=== PATIENT | male | born 1980 | race Caucasian/White ===

== ENCOUNTER 2018-09-09 07:08 | Emergency (ER) | payer SELFPAY ==
[2018-09-09 07:40] VITALS: BP 114/70; PULSE 83; TEMP 98.5; BMI 46.5
[2018-09-09] MEDS ORDERED: KETOROLAC TROMETHAMINE 60 MG/2 ML VIAL IM ONE (07:43)
[2018-09-09] MEDS ORDERED: CYCLOBENZAPRINE HCL 10 MG TABLET (FP) PO ONE (07:44)
[2018-09-09] MEDS ORDERED: CYCLOBENZAPRINE HCL 10 MG TABLET (FP) ONE (07:51)
[2018-09-09] MEDS ORDERED: KETOROLAC TROMETHAMINE 60 MG/2 ML VIAL ONE (07:51)
--- NOTE | 2018-09-09 07:52 | PDOC ---
History of Present Illness - General Chief Complaint: Pain Stated Complaint: LEG PAIN Time Seen by Provider: 09/09/18 07:41 History Source: Patient Exam Limitations: No Limitations - History of Present Illness Initial Comments: 09/09/18 07:46 38 y/o male presents to the ED with c/o rt lower back and hip pain since last night. 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 Pt states following the event he was unable to get up from the floor and by the evening came along patient states he was unable to ambulate without discomfort and stated he took his 's Tylenol with codeine which alleviated his pain for approximate 4 hours but then pain returned. Patient states pain is worsened with ambulation causing his an electric burning sensation down his leg. Patient denies saddle anesthesia, incontinence, or sensory changes distal of injury Occurred: reports: yesterday Severity: reports: moderate Pain Location: reports: back, lower extremity Method of Injury: Yes: other Associated Symptoms (Fall): trouble walking Past History - Travel Traveled outside of the country in the last 30 days: No Close contact w/someone who was outside of country & ill: No - Past Medical History Allergies/Adverse Reactions: Allergies Allergy/AdvReac Type Severity Reaction Status Date / Time No Known Allergies Allergy Verified 09/09/18 07:27 Home Medications: Ambulatory Orders Amoxicillin/Potassium Clav [Augmentin 875-125 Tablet] 1 each PO BID #20 tablet 01/02/17 COPD: No - Immunization History Immunization Up to Date: Yes - Suicide/Smoking/Psychosocial Hx Smoking History: Never smoked Have you smoked in the past 12 months: No If you are a former smoker, when did you quit?: 1 yr 3 mo Information on smoking cessation initiated: No Hx Alcohol Use: No Drug/Substance Use Hx: No Substance Use Type: None Patient Lives Alone: No Lives with/in: spouse/SO Trauma Specific PMHX - Complaint Specific PMHX Back Injury: Yes Review of Systems - Review of Systems Able to Perform ROS?: No Is the patient limited Pal[place]an proficient: No Constitutional: No: Symptoms Reported ABD/GI: No: Symptoms Reported : No: Symptoms Reported Musculoskeletal: Yes: Back Pain, Muscle Pain Integumentary: No: Symptoms Reported Neurological: Yes: Tingling (right lower extremity) Hematologic/Lymphatic: No: Symptoms Reported *Physical Exam - Vital Signs Last Vital Signs Temp Pulse Resp BP Pulse Ox 98.5 F 83 16 114/70 97 09/09/18 07:27 09/09/18 07:27 09/09/18 07:27 09/09/18 07:27 09/09/18 07:27 - Physical Exam General Appearance: Yes: Nourished, Appropriately Dressed, Mild Distress Neck: positive: Supple Respiratory/Chest: positive: Lungs Clear, Normal Breath Sounds. negative: Respiratory Distress, Accessory Muscle Use Cardiovascular: positive: Regular Rhythm, Regular Rate. negative: Murmur Gastrointestinal/Abdominal: positive: Soft. negative: Tenderness Musculoskeletal: negative: CVA Tenderness Extremity: negative: Normal Capillary Refill, Pedal Edema Integumentary: positive: Normal Color, Warm, Moist Neurologic: positive: Normal Mood/Affect, Motor Strength 5/5 (ambulatory) Moderate Sedation - Procedure Monitoring Vital Signs: Procedure Monitoring Vital Signs Temperature 98.5 F 09/09/18 07:27 Pulse Rate 83 09/09/18 07:27 Respiratory Rate 16 09/09/18 07:27 Blood Pressure 114/70 09/09/18 07:27 O2 Sat by Pulse Oximetry (%) 97 09/09/18 07:27 Medical Decision Making - Medical Decision Making 09/09/18 07:38 Chief complaint: Right lower extremity right hip right sciatic pain after lifting heavy item. Exam :Patient with right sciatic tenderness with 5+ muscle strength in the right lower extremity. Patient had no midline vertebral tenderness Plan: IM Toradol and Flexeril. Patient be discharged home with the same. *DC/Admit/Observation/Transfer Diagnosis at time of Disposition: Right sciatic nerve pain - Discharge Dispostion Disposition: HOME Condition at time of disposition: Improved - Referrals - Patient Instructions Printed Discharge Instructions: DI for Back Pain With Sciatica Additional Instructions: Please apply ice to the affected area for the next 72 hours and heat thereafter. May provide mild massage to area and avoid movements that triggers severe or moderate pain. - Post Discharge Activity Forms/Work/School Notes: Back to Work
== END 2018-09-09 08:24 | disposition home or self-care (01) ==
LOC: JER 07:08
PROC: 3E0233Z Introduction of Anti-inflammatory into Muscle, Percutaneous Approach (ICD-10-PCS; principal; 2018-09-09)
DX: M54.31 Sciatica, right side (principal)
CPT/HCPCS: 96372; 99281-25